=== PATIENT | male | born 1990 | race Caucasian/White ===

== ENCOUNTER 2016-04-05 16:21 | Emergency (ER) | payer OTHER ==
[~2016-04-05] VITALS: Wt 77.5 kg
[~2016-04-05 16:21] MED LIST: CEPH-443 PO; SLF10OP15 LEFT EYE
[2016-04-05] MEDS ORDERED: CEPH-443 PO (16:39)
--- NOTE | 2016-04-05 16:39 | ERD ---
ER Documentation Chief Complaint Date/Time DATE: 04/05/16 Chief Complaint Left earlobe pain HPI The patient is a 25-year-old male who presents to the Emergency Department with complaint of swelling, erythema, warmth and tenderness to the left earlobe. The patient reports that two days ago he was itching his ear, when he accidentally scratched the lateral aspect of the left earlobe. Upon waking up this morning, he noted throbbing pain localized to the left ear lobule, and looked in the mirror, to see erythema and swelling of the area. He denies any fevers, chills, nausea, vomiting. Denies any inner ear pain, hearing difficulty , bloody discharge or drainage from the ear. He has no known drug allergies. ROS All systems reviewed and are negative except as per history of present illness. Medications Home Meds Active Scripts Sulfamethoxazole-Trimethoprim* (Bactrim* DS) 800-160 Mg Tab, 1 TAB PO BID for 10 Days, TAB Prov:BRENT TAVARES PA-C 04/05/16 Cephalexin* (Keflex*) 500 Mg Capsule, 500 MG PO QID for 7 Days, CAP Prov:BRENT TAVARES PA-C 04/05/16 Sulfacetamide Sodium* (Sulfacetamide Sodium*) 10%-15 Ml Opht Drops, 1 DROP LEFT EYE Q2H, #1 EA Prov:TRUDY TADEO PA-C 02/09/16 Cephalexin* (Keflex*) 500 Mg Capsule, 500 MG PO QID for 7 Days, CAP Prov:TRUDY TADEO PA-C 02/09/16 Allergies Allergies: Coded Allergies: No Known Allergy (Unverified , 04/05/16) Physical Exam Vitals Vital Signs Date Time Temp Pulse Resp B/P Pulse Ox O2 Delivery O2 Flow Rate FiO2 04/05/16 16:29 98.3 78 18 112/68 99 Physical Exam Const: Well-developed, well-nourished, in no acute distress. Head: Normocephalic Eyes: Normal Conjunctiva ENT: Small healing superficial abrasion to left ear lobule, with surrounding warmth, erythema, tenderness and swelling. No drainage. No bleeding. No crepitus. No lymphatic streaking. Tympanic membranes are clear bilaterally with no erythema, effusing or dulling of the light reflex. No edema or erythema of external auditory canals. No otorrhea. No foreign bodies. Tympanic membranes intact. Moist mucous membranes. Clear oropharynx. No lip or tongue swelling. Neck: Supple. Full range of motion. No meningismus. Resp: Clear to auscultation bilaterally Cardio: Regular rate and rhythm Skin: See ENT. No petechiae or purpura. No bullae. Back: Normal range of motion. Ext: No clubbing, cyanosis, or edema. Distal pulses are palpable, 2+ bilaterally. Capillary refill is less than 2 seconds. Neur: Awake and alert Psych: Cooperative. Appropriate. Procedures/MDM This is a 25-year-old male presenting to the emergency department with complaint of spreading erythema surrounding a scratch to the left earlobe. The patient had a small superficial abrasion to the lateral left ear lobule with surrounding spreading erythema and swelling that is warm to touch and tender to palpation on physical examination. However, the patient's oropharynx and airway were patent, and exhibited no breathing difficulties, wheezing, tongue swelling or lip swelling. His vital signs were stable, and he was afebrile, with no recent history of fevers or chills. The differential diagnosis includes, but is not limited to, allergic reaction, insect bite, fungal infection, cellulitis, MRSA, impetigo, shingles, herpes simplex virus, burn, abscess, dermatitis, viral syndrome, candidiasis, medication reaction, Leblanc Parth syndrome, epidermolysis bullosa, toxic epidermal necrolysis, meningococcemia. After rest, the patient has no new complaints, and the patient remains stable with appropriate vital signs and no signs of respiratory distress. Upon my review and interpretation of the patient's presentation and overall ER course, I believe the patient's symptoms are most consistent with cellulitis. The patient is in stable condition and therefore can be discharged home with prescriptions for Bactrim and Keflex, and strict return precautions for signs of deteriorating or worsening condition. The patient is advised to follow up with his primary care provider within 2-3 days for reevaluation and further management, or return to the ER sooner for any new or worsening symptoms. Additionally, he is advised to return sooner if he notices the erythema spreading beyond the current borders. I shared my medical decision making and plan with the patient at length and in great detail, and he verbally understands and agrees with the plan for further observation and care as an outpatient. At the time of discharge all questions were answered. Departure Diagnosis: Primary Impression: Cellulitis of left earlobe Condition: Stable Patient Instructions: Cellulitis Additional Instructions: Call your primary care doctor TOMORROW for an appointment during the next 2-3 days for reevaluation and further management. See the doctor sooner or return here if your condition worsens before your appointment time. BRENT TAVARES PA-C Apr 05, 2016 16:39
[2016-04-05] MEDS ORDERED: BACTDS PO (16:40)
== END 2016-04-05 16:40 | disposition home or self-care (01) ==
LOC: E/R 16:21
DX: H60.12 Cellulitis of left external ear (principal)
CPT/HCPCS: 99284

== ENCOUNTER → 2018-09-28 | Emergency (ER) | payer SELFPAY ==
[~2018-09-28] VITALS: Ht 177.8 cm; Wt 85.0 kg
[~2018-09-28] MED LIST changes: +BACTDS PO; +DIPHTH/TET/ACEL PERTUSS (ADULT) 0.5 ML VIAL IM* ONE; +IBUP-1542 PO; +IBUPROFEN 800 MG TAB PO ONE
[2018-09-28 18:54] VITALS: BP 153/76; PULSE 88; RESP 18; Ht 177.8 cm; Wt 85.0 kg
--- NOTE | 2018-09-28 18:56 | EN ---
Date/Time of Note Date/Time of Note DATE: 09/28/18 TIME: 18:55 ER Progress Note MSE - 27-year-old male sustained puncture wound left index finger with a nail gun. Tetanus is not up-to-date .otherwise well-appearing without medical history. X-ray and tetanus ordered. ED 2 appropriate KEERTHI RIVERO MD Sep 28, 2018 18:56
--- NOTE | 2018-09-28 20:40 | ERD ---
ER Documentation Chief Complaint Chief Complaint puncture wound to left 2nd,3rd fingers from nail gun about 3 hours ago HPI 27-year-old male sustained a through and through puncture wound to his left index fingertip with a nail gun today. There is a small puncture wounds middle fingers as well. Tetanus is not up-to-date. No restricted range of motion, deficits or weakness or redness or bleeding or discharge. ROS All systems reviewed and are negative except as per history of present illness. Medications Home Meds Active Scripts Ibuprofen* (Motrin*) 600 Mg Tab, 600 MG PO Q6, #20 TAB Prov:KEERTHI RIVERO MD 09/28/18 Sulfamethoxazole-Trimethoprim* (Bactrim* DS) 800-160 Mg Tab, 1 TAB PO BID for 10 Days, TAB Prov:BRENT TAVARES PA-C 04/05/16 Cephalexin* (Keflex*) 500 Mg Capsule, 500 MG PO QID for 7 Days, CAP Prov:BRENT TAVARES PA-C 04/05/16 Sulfacetamide Sodium* (Sulfacetamide Sodium*) 10%-15 Ml Opht Drops, 1 DROP LEFT EYE Q2H, #1 EA Prov:TRUDY TADEO PA-C 02/09/16 Cephalexin* (Keflex*) 500 Mg Capsule, 500 MG PO QID for 7 Days, CAP Prov:TRUDY TADEO PA-C 02/09/16 Allergies Allergies: Coded Allergies: No Known Allergy (Unverified , 04/05/16) PMhx/Soc Medical and Surgical Hx: pt denies Medical Hx, pt denies Surgical Hx Hx Alcohol Use: No Hx Substance Use: No Hx Tobacco Use: No Smoking Status: Never smoker FmHx Family History: No diabetes, No coronary disease, No other Physical Exam Vitals Vital Signs Date Temp Pulse Resp B/P (MAP) Pulse Ox O2 O2 Flow FiO2 Time Delivery Rate 09/28/18 98.2 88 18 153/76 98 18:54 (101) Physical Exam Const: No acute distress Head: Atraumatic Eyes: Normal Conjunctiva ENT: Normal External Ears, Nose and Mouth. Neck: Full range of motion. No meningismus. Resp: Clear to auscultation bilaterally Cardio: Regular rate and rhythm, no murmurs Abd: Soft, non tender, non distended. Normal bowel sounds Skin: No petechiae or rashes Back: No midline or flank tenderness Ext: No cyanosis, or edema through and through puncture wound to the tip of the left index finger. Small puncture wound in the left middle finger. No eryt luis, bleeding or discharge. No deficits or signs of ischemia noted. Neur: Awake and alert Psych: Normal Mood and Affect Results 24 hrs Current Medications Medications Dose Sig/Shabbir Start Time Status Last (Trade) Ordered Route PRN Stop Time Admin Dose Reason Admin Diphtheria/ 0.5 ml ONCE ONCE 09/28/18 DC 09/28/18 Tetanus/Acell IM* 19:00 20:33 Pertussis 09/28/18 19:01 (Adacel) Ibuprofen 800 mg ONCE ONCE 09/28/18 09/28/18 (Motrin) PO 21:00 20:37 09/28/18 21:01 Procedures/MDM X-ray Hand 3V interpreted by me: Scaphoid: Normal Bones: No fracture Joints: No dislocation Foreign body: None impression-normal left hand x-ray Given ibuprofen and tetanus booster. Patients wound was dressed. Patient presents with a puncture wounds left index finger without signs of infection, fracture, deficits, ischemia, compartment syndrome, additional complications. We discharged home with ibuprofen, instructions for recheck in 2 to 3 days for redness, fevers, new worsening symptoms or signs of infection or symptoms of additional complications. The patient was stable with no new complaints during the ER course. Clinically, there is no current evidence to suggest meningitis, sepsis, acute abdomen, pneumonia, stroke, acute coronary syndrome, pulmonary embolism, aortic dissection or any other emergent condition appearing to require further evaluation or hospitalization. Patient counseled regarding my diagnostic impression and care plan. Prior to discharge all questions answered. Pt agrees with treatment plan and understands strict return precautions. Pt is instructed to follow up with primary care provider within 24- 48 hours. Precautionary instructions provided including instructions to return to the ER if not improving or for any worsening or changing symptoms or concerns. Disclaimer: Inadvertent spelling and grammatical errors are likely due to EHR/dictation software use and do not reflect on the overall quality of patient care. Also, please note that the electronic time recorded on this note does not necessarily reflect the actual time of the patient encounter. Departure Diagnosis: Primary Impression: Puncture wound Condition: Stable Patient Instructions: Puncture Wound, General Additional Instructions: X-ray read as normal. Recheck for redness, fevers, new worsening symptoms. KEERTHI RIVERO MD Sep 28, 2018 20:40
== END | disposition home or self-care (01) ==
LOC: FTE 18:41
DX: S61.231A Puncture wound without foreign body of left index finger without damage to nail, initial encounter (principal); S61.233A Puncture wound without foreign body of left middle finger without damage to nail, initial encounter; W29.4XXA Contact with nail gun, initial encounter; Y92.9 Unspecified place or not applicable; Z23 Encounter for immunization
CPT/HCPCS: 90471; 90715